=== PATIENT | male | born 1940 | race Caucasian/White ===

== ENCOUNTER → 2023-03-26 | Day surgery (SDC) | payer MEDICARE ==
[~2023-03-26] VITALS: Wt 106.6 kg
[~2023-03-26] MED LIST: ASPIRIN CHEWABL81 MG PO; DULOXETINE HCL60 MG PO; LOSARTAN POTASS50 M1 PO; METFORMIN XR500 MG PO; NEURONTIN300 MG PO; NIACOR500 MG PO; PIOGLITAZONE HC30 MG PO; SIMVASTATIN40 MG PO
[2023-03-26 10:28] VITALS: BP 143/72
[2023-03-26 10:43] VITALS: BP 126/57
[2023-03-26 10:51] VITALS: BP 131/57
[2023-03-26 11:11] VITALS: BP 138/63
== END | disposition home or self-care (01) ==
LOC: SDC 03-21 11:45
PROVIDERS: ATTEND Ophthalmology
DX: E11.36 Type 2 diabetes mellitus with diabetic cataract (principal); H25.812 Combined forms of age-related cataract, left eye; F32.A Depression, unspecified; E78.00 Pure hypercholesterolemia, unspecified; I10 Essential (primary) hypertension; Z95.5 Presence of coronary angioplasty implant and graft; Z85.828 Personal history of other malignant neoplasm of skin; Z79.82 Long term (current) use of aspirin; Z79.84 Long term (current) use of oral hypoglycemic drugs; Z79.899 Other long term (current) drug therapy

== ENCOUNTER → 2023-04-23 | Day surgery (SDC) | payer MEDICARE ==
[~2023-04-23] VITALS: Ht 175.2 cm; Wt 106.6 kg
[2023-04-23 08:35] VITALS: BP 133/67
[2023-04-23 10:39] VITALS: BP 130/55
[2023-04-23 10:53] VITALS: BP 136/61
[2023-04-23 11:09] VITALS: BP 130/59
== END | disposition home or self-care (01) ==
LOC: SDC 04-18 10:15
PROVIDERS: ATTEND Ophthalmology
DX: E11.36 Type 2 diabetes mellitus with diabetic cataract (principal); H25.811 Combined forms of age-related cataract, right eye; I10 Essential (primary) hypertension; F32.A Depression, unspecified; Z85.828 Personal history of other malignant neoplasm of skin; E78.00 Pure hypercholesterolemia, unspecified; Z98.42 Cataract extraction status, left eye; Z79.82 Long term (current) use of aspirin; Z79.899 Other long term (current) drug therapy